=== PATIENT | female | born 1955 | race African-American/Black ===

== ENCOUNTER 2017-12-31 18:01 | Emergency (ER) | payer SELFPAY ==
--- NOTE | 2017-12-31 19:58 | EDPHYS ---
Physician Documentation [facility] Name: Nataly Nielson Age: 62 yrs Sex: Female : 1955 Arrival Date: 12/31/2017 Time: 18:07 Bed Treatment Private MD: ED Physician Karsten Lam HPI: 12/31 20:00 This 62 yrs old Black Female presents to ER via Ambulatory with complaints of Shoulder kb Pain. 20:00 The patient or guardian complains of pain, that is acute. right shoulder. Context: The kb problem was sustained at home, resulted from an unknown reason, The patient reports no decreased range of motion. The patient reports no obvious deformity. Onset: The symptoms/episode began/occurred yesterday. Modifying factors: the symptoms are alleviated by nothing. The symptoms are aggravated by movement. Associated signs and symptoms: The patient has no apparent associated signs or symptoms. Severity of symptoms: At their worst the symptoms were moderate, in the emergency department the symptoms are unchanged. Treatment prior to arrival includes: no previous treatment. The patient has not experienced similar symptoms in the past. The patient has not recently seen a physician. Historical: - Allergies: 18:24 No Known Allergies; aj - Home Meds: 18:24 None [Active]; aj - PMHx: 18:24 None; aj - PSHx: 18:24 None; aj - Immunization history:: Adult Immunizations up to date. - Social history:: Smoking status: Patient uses tobacco products, smokes one-half pack cigarettes per day. ROS: 20:00 Constitutional: Negative for fever, chills, and weight loss, Cardiovascular: Negative kb for chest pain, palpitations, and edema, Respiratory: Negative for shortness of breath, cough, wheezing, and pleuritic chest pain, Abdomen/GI: Negative for abdominal pain, nausea, vomiting, diarrhea, and constipation, Back: Negative for injury and pain, : Negative for injury, bleeding, discharge, and swelling, Skin: Negative for injury, rash, and discoloration, Neuro: Negative for headache, weakness, numbness, tingling, and seizure. 20:00 MS/extremity: Positive for pain, Negative for injury or acute deformity, decreased range of motion, swelling, tenderness. Exam: 20:00 Constitutional: This is a well developed, well nourished patient who is awake, alert, kb and in no acute distress. Head/Face: Normocephalic, atraumatic. Neck: Trachea midline, no thyromegaly or masses palpated, and no cervical lymphadenopathy. Supple, full range of motion without nuchal rigidity, or vertebral point tenderness. No Meningismus. Chest/axilla: Normal chest wall appearance and motion. Nontender with no deformity. No lesions are appreciated. Cardiovascular: Regular rate and rhythm with a normal S1 and S2. No gallops, murmurs, or rubs. Normal PMI, no JVD. No pulse deficits. Respiratory: Lungs have equal breath sounds bilaterally, clear to auscultation and percussion. No rales, rhonchi or wheezes noted. No increased work of breathing, no retractions or nasal flaring. Abdomen/GI: Soft, non-tender, with normal bowel sounds. No distension or tympany. No guarding or rebound. No evidence of tenderness throughout. Skin: Warm, dry with normal turgor. Normal color with no rashes, no lesions, and no evidence of cellulitis. Neuro: Awake and alert, GCS 15, oriented to person, place, time, and situation. Cranial nerves II-XII grossly intact. Motor strength 5/5 in all extremities. Sensory grossly intact. Cerebellar exam normal. Normal gait. 20:00 Musculoskeletal/extremity: Extremities: grossly normal except: noted in the right shoulder: pain, ROM: limited active range of motion due to pain, in the right shoulder, Circulation is intact in all extremities. Sensation intact. Vital Signs: 18:24 BP 171 / 98; Pulse 63; Resp 17; Temp 98.6; Pulse Ox 98% on R/A; Weight 61.69 kg; Height aj 5 ft. 2 in. (157.48 cm); Pain 10/10; 20:13 BP 193 / 80; Pulse 55; Resp 18; Pulse Ox 99% on R/A; Pain 6/10; tl2 18:24 Body Mass Index 24.87 (61.69 kg, 157.48 cm) aj MDM: 18:52 Patient medically screened. kb 20:02 Data reviewed: vital signs, nurses notes. Data interpreted: Pulse oximetry: on room air kb is 98 %. Interpretation: normal. Counseling: I had a detailed discussion with the patient and/or guardian regarding: the historical points, exam findings, and any diagnostic results supporting the discharge/admit diagnosis, radiology results, the need for outpatient follow up, a family practitioner, to return to the emergency department if symptoms worsen or persist or if there are any questions or concerns that arise at home. 12/31 18:26 Order name: XRAY Shoulder RIGHT 2 view; Complete Time: 20:06 aj Administered Medications: No medications were administered Disposition: 12/31/17 19:57 Discharged to Home. Impression: Pain in right shoulder. - Condition is Stable. - Discharge Instructions: Shoulder Pain, [id number]. - Prescriptions for Cyclobenzaprine 10 mg Oral Tablet - take 1 tablet by ORAL route every 8 hours As needed; 21 tablet. Diclofenac Sodium 75 mg Oral Tablet, Delayed Release (E.C.) - take 1 tablet by ORAL route 2 times per day As needed; 30 tablet. - Medication Reconciliation Form, Thank You Letter, Antibiotic Education, Prescription Opioid Use, Work release form form. - Follow up: Emergency Department; When: As needed; Reason: Worsening of condition. Follow up: Private Physician; When: 2 - 3 days; Reason: Recheck today's complaints, Continuance of care, Re-evaluation by your physician. Addendum: 01/03/2018 08:51 Co-signature as Attending Physician, Karsten Lam MD I agree with the assessment and c green plan of care. Signatures: Dispatcher [employer] Ester Cha, CHILDREN'S BOOK AUTHOR-C CHILDREN'S BOOK AUTHOR-Susana Armstrong, Karsten Moore RN, MD MD cha Knox, Taylor RN RN tl2 Corrections: (The following items were deleted from the chart) 12/31 20:14 19:57 12/31/2017 19:57 Discharged to Home. Impression: Pain in right shoulder. tl2 Condition is Stable. Forms are Medication Reconciliation Form, Thank You Letter, Antibiotic Education, Prescription Opioid Use. Follow up: Emergency Department; When: As needed; Reason: Worsening of condition. Follow up: Private Physician; When: 2 - 3 days; Reason: Recheck today's complaints, Continuance of care, Re-evaluation by your physician. kb
--- NOTE | 2017-12-31 19:58 | ER ---
Nurse's Notes [facility] Name: Nataly Nielson Age: 62 yrs Sex: Female : 1955 Arrival Date: 12/31/2017 Time: 18:07 Bed Treatment Private MD: Diagnosis: Pain in right shoulder Presentation: 12/31 18:23 Presenting complaint: Patient states: Right shoulder pain that started last night. aj Patient denies injury. Report "crackling" feeling in right shoulder. Transition of care: patient was not received from another setting of care. Onset of symptoms was December 30, 2017. Care prior to arrival: None. 18:23 Method Of Arrival: Ambulatory 18:23 Acuity: MAMADOU 4 19:35 Initial Sepsis Screen: Does the patient meet any 2 criteria? No. Patient's initial tl2 sepsis screen is negative. Does the patient have a suspected source of infection? No. Patient's initial sepsis screen is negative. Triage Assessment: 18:24 General: Appears in no apparent distress. uncomfortable, Behavior is calm, cooperative, aj appropriate for age. Pain: Complains of pain in anterior aspect of right shoulder. Neuro: Level of Consciousness is awake, alert, obeys commands, Oriented to person, place, time, situation, Appropriate for age. Respiratory: Airway is patent Respiratory effort is even, unlabored, Respiratory pattern is regular, symmetrical. Derm: Skin is intact, is healthy with good turgor, Skin is pink, warm \\T\\ dry. normal. Musculoskeletal: Reports pain in anterior aspect of right shoulder. Historical: - Allergies: 18:24 No Known Allergies; - Home Meds: 18:24 None [Active]; - PMHx: 18:24 None; - PSHx: 18:24 None; aj - Immunization history:: Adult Immunizations up to date. - Social history:: Smoking status: Patient uses tobacco products, smokes one-half pack cigarettes per day. Screenin:33 Abuse screen: Denies threats or abuse. Nutritional screening: No deficits noted. tl2 Tuberculosis screening: No symptoms or risk factors identified. Fall Risk None identified. Assessment: 19:33 General: Appears in no apparent distress. uncomfortable, Behavior is calm, cooperative, tl2 appropriate for age. Pain: Complains of pain in right clavicle and anterior aspect of right shoulder Pain radiates to right arm Pain began this morning. Neuro: Level of Consciousness is awake, alert, obeys commands, Oriented to person, place, time, situation. Cardiovascular: Denies chest pain. Respiratory: Airway is patent Respiratory effort is even, unlabored, Respiratory pattern is regular, symmetrical. GI: No signs and/or symptoms were reported involving the gastrointestinal system. : No signs and/or symptoms were reported regarding the genitourinary system. Derm: Skin is pink, warm \\T\\ dry. Musculoskeletal: Circulation, motion, and sensation intact. Range of motion: limited in right shoulder. 20:13 Reassessment: Patient appears in no apparent distress at this time. Patient and/or tl2 family updated on plan of care and expected duration. Pain level reassessed. Patient is alert, oriented x 3, equal unlabored respirations, skin warm/dry/pink. Pt verbalized understanding of discharge instructions, need for follow up and prescription usage. Vital Signs: 18:24 BP 171 / 98; Pulse 63; Resp 17; Temp 98.6; Pulse Ox 98% on R/A; Weight 61.69 kg; Height aj 5 ft. 2 in. (157.48 cm); Pain 10/10; 20:13 BP 193 / 80; Pulse 55; Resp 18; Pulse Ox 99% on R/A; Pain 6/10; tl2 18:24 Body Mass Index 24.87 (61.69 kg, 157.48 cm) aj ED Course: 18:07 Patient arrived in ED. mr 18:23 Triage completed. aj 18:24 Arm band placed on left wrist. Patient placed in waiting room, Patient notified of wait aj time. X-ray ordered. 18:52 Ester Pimentel FNP-C is PHCP. kb 18:52 Karsten Lam MD is Attending Physician. kb 19:20 Yarelis Small, SUSANNE is Primary Nurse. tl2 19:20 X-ray completed. Portable x-ray completed in exam room. Patient tolerated procedure kp1 well. 19:21 XRAY Shoulder RIGHT 2 view In Process Unspecified. EDMS 19:33 Patient has correct armband on for positive identification. Bed in low position. Call tl2 light in reach. 20:13 No provider procedures requiring assistance completed. Patient did not have IV access tl2 during this emergency room visit. Administered Medications: No medications were administered Outcome: 19:57 Discharge ordered by . stan 20:13 Discharged to home ambulatory, with family. tl2 20:13 Condition: stable 20:13 Discharge instructions given to patient, Instructed on discharge instructions, follow up and referral plans. medication usage, Demonstrated understanding of instructions, follow-up care, medications, Prescriptions given X 2. 20:14 Patient left the ED. tl2 Signatures: Dispatcher [employer] EDMS Ester Pimentel, PRORATE CLERK-C PRORATE CLERK-Susana Armstrong, RN Bianca Alegre Taylor, RN RN tl2 Kate Hermosillo [facility]
--- NOTE | 2017-12-31 20:04 | RAD REPORT ---
EXAM DESCRIPTION: RAD - Shoulder Right 2 View - 12/31/2017 7:25 pm CLINICAL HISTORY: Right shoulder pain FINDINGS: No fracture is seen. The humeral head appears to be in internal rotation on both views. This is a nonspecific finding but can be associated with a posterior dislocation. If patient has clinical symptoms to suggest this then an axillary view of the shoulder would be recommended for further evaluation
== END 2017-12-31 20:14 | disposition home or self-care (01) ==
LOC: ER 18:01
DX: M25.511 Pain in right shoulder (principal); F17.210 Nicotine dependence, cigarettes, uncomplicated
CPT/HCPCS: 99283

== ENCOUNTER 2020-02-23 14:07 | Emergency (ER) | payer SELFPAY, OTHER ==
[2020-02-23] MEDS ORDERED: ACETAMINOPHEN 500 MG TAB ONE (15:23)
--- NOTE | 2020-02-23 15:25 | EDPHYS ---
Physician Documentation [facility] Name: Nataly Nielson Age: 64 yrs Sex: Female : 1955 Arrival Date: 02/23/2020 Time: 14:10 Bed 18 Private MD: ED Physician Sam Glynn HPI: 02/22 15:42 This 64 yrs old Black Female presents to ER via Ambulatory with complaints of Body snw aches. 15:42 Onset: The symptoms/episode began/occurred gradually, 4 day(s) ago, and became snw persistent. Associated signs and symptoms: Pertinent positives: fever, headache, fatigue. Modifying factors: The patient symptoms are alleviated by nothing. The patient has not experienced similar symptoms in the past. The patient has not recently seen a physician. denies PMH, PSH, NKDA, No meds. Historical: - Allergies: 14:43 No Known Allergies; bp - Home Meds: 14:43 None [Active]; bp - PMHx: 14:43 None; bp - Immunization history:: Adult Immunizations unknown. - Social history:: Smoking status: Patient denies any tobacco usage or history of. ROS: 15:43 Eyes: Negative for injury, pain, redness, and discharge, ENT: Negative for injury, snw pain, and discharge, Neck: Negative for injury, pain, and swelling, Cardiovascular: Negative for chest pain, palpitations, and edema, Respiratory: Negative for shortness of breath, cough, wheezing, and pleuritic chest pain, Abdomen/GI: Negative for abdominal pain, nausea, vomiting, diarrhea, and constipation, Back: Negative for injury and pain, : Negative for injury, bleeding, discharge, and swelling, MS/Extremity: Negative for injury and deformity, Skin: Negative for injury, rash, and discoloration, Neuro: Negative for headache, weakness, numbness, tingling, and seizure. 15:43 Constitutional: Positive for body aches, fatigue, fever, malaise, poor PO intake. Exam: 16:40 Head/Face: Normocephalic, atraumatic. Eyes: Pupils equal round and reactive to light, snw extra-ocular motions intact. Lids and lashes normal. Conjunctiva and sclera are non-icteric and not injected. Cornea within normal limits. Periorbital areas with no swelling, redness, or edema. ENT: Nares patent. No nasal discharge, no septal abnormalities noted. Tympanic membranes are normal and external auditory canals are clear. Oropharynx with no redness, swelling, or masses, exudates, or evidence of obstruction, uvula midline. Mucous membranes moist. Neck: Trachea midline, no thyromegaly or masses palpated, and no cervical lymphadenopathy. Supple, full range of motion without nuchal rigidity, or vertebral point tenderness. No Meningismus. Chest/axilla: Normal chest wall appearance and motion. Nontender with no deformity. No lesions are appreciated. Cardiovascular: Regular rate and rhythm with a normal S1 and S2. No gallops, murmurs, or rubs. Normal PMI, no JVD. No pulse deficits. Respiratory: Lungs have equal breath sounds bilaterally, clear to auscultation and percussion. No rales, rhonchi or wheezes noted. No increased work of breathing, no retractions or nasal flaring. Abdomen/GI: Soft, non-tender, with normal bowel sounds. No distension or tympany. No guarding or rebound. No evidence of tenderness throughout. Back: No spinal tenderness. No costovertebral tenderness. Full range of motion. Skin: Warm, dry with normal turgor. Normal color with no rashes, no lesions, and no evidence of cellulitis. MS/ Extremity: Pulses equal, no cyanosis. Neurovascular intact. Full, normal range of motion. Neuro: Awake and alert, GCS 15, oriented to person, place, time, and situation. Cranial nerves II-XII grossly intact. Motor strength 5/5 in all extremities. Sensory grossly intact. Cerebellar exam normal. Normal gait. Psych: Awake, alert, with orientation to person, place and time. Behavior, mood, and affect are within normal limits. 16:40 Constitutional: The patient appears alert, febrile. Vital Signs: 14:41 BP 121 / 71; Pulse 96; Resp 20; Temp 101.4; Pulse Ox 97% ; Weight 61.69 kg; Height 5 bp ft. 2 in. (157.48 cm); 14:41 Body Mass Index 24.87 (61.69 kg, 157.48 cm) bp MDM: 14:58 Patient medically screened. snw 15:41 Data reviewed: vital signs, nurses notes. Data interpreted: Pulse oximetry: on room air snw is 97 %. Interpretation: acceptable. Response to treatment: the patient's symptoms have mildly improved after treatment. Special discussion: Based on the history and exam findings, there is no indication for further emergent testing or inpatient evaluation. I discussed with the patient/guardian the need to see the primary care provider for further evaluation of the symptoms. 02/22 15:12 Order name: COVID-19 02/22 15:12 Order name: CORONAVIRUS EDVT Administered Medications: No medications were administered Disposition: 19:10 Co-signature as Attending Physician, Sam Glynn MD. ma2 Disposition: 02/23/20 15:25 Discharged to Home. Impression: Coronavirus infection, unspecified. - Condition is Stable. - Discharge Instructions: Fever, Adult, Upper Respiratory Infection, Adult, Rehydration, Adult. - Prescriptions for Prednisone 20 mg Oral Tablet - take 2 tablet by ORAL route once daily for 5 days; 10 tablet. Zithromax 500 mg Oral Tablet - take 1 tablet by ORAL route once daily for 5 days; 5 tablet. - Work release form, Medication Reconciliation Form, Thank You Letter, Antibiotic Education, Prescription Opioid Use form. - Follow up: Emergency Department; When: As needed; Reason: Worsening of condition. Follow up: Private Physician; When: 2 - 3 days; Reason: Recheck today's complaints, Continuance of care, Re-evaluation by your physician. Signatures: Dispatcher [employer] EDVT Adina Cochran, CARROLL-C TIRE BUILDING SUPERVISOR-Csnw Christiano Molina RN RN Sam Glynn MD MD [facility] Ingrid Teran RN RN Corrections: (The following items were deleted from the chart) 15:49 15:25 02/23/2020 15:25 Discharged to Home. Impression: Coronavirus infection, ah unspecified. Condition is Stable. Forms are Medication Reconciliation Form, Thank You Letter, Antibiotic Education, Prescription Opioid Use. Follow up: Emergency Department; When: As needed; Reason: Worsening of condition. Follow up: Private Physician; When: 2 - 3 days; Reason: Recheck today's complaints, Continuance of care, Re-evaluation by your physician. snw
--- NOTE | 2020-02-23 15:25 | ER ---
Nurse's Notes [facility] Name: Nataly Nielson Age: 64 yrs Sex: Female : 1955 Arrival Date: 02/23/2020 Time: 14:10 Bed 18 Private MD: Diagnosis: Coronavirus infection, unspecified Presentation: 02/22 14:41 Chief complaint: Patient states: FEVER, MYALGIA AND MALAISE INCREASING x4 DAYS. bp Coronavirus screen: Surgical mask placed on patient. Patient moved to private room, placed in contact and droplet isolation with eye protection until further assessment. Patient reports a cough. Patient reports shortness of breath or difficulty breathing. Patient reports a measured and/or subjective temperature greater than 100.4F. Ebola Screen: No symptoms or risks identified at this time. Initial Sepsis Screen: Does the patient meet any 2 criteria? Temp <36.0*C (96.8*F)) or > 38.3*C (100.9*F). HR > 90 bpm. Yes Does the patient have a suspected source of infection? No. Patient's initial sepsis screen is negative. Risk Assessment: Do you want to hurt yourself or someone else? Patient reports no desire to harm self or others. Onset of symptoms is unknown. 14:41 Method Of Arrival: Ambulatory bp 14:41 Acuity: MAMADOU 3 bp Historical: - Allergies: 14:43 No Known Allergies; bp - Home Meds: 14:43 None [Active]; bp - PMHx: 14:43 None; bp - Immunization history:: Adult Immunizations unknown. - Social history:: Smoking status: Patient denies any tobacco usage or history of. Screenin:20 Nutritional screening: No deficits noted. Tuberculosis screening: No symptoms or risk ah factors identified. Tuberculosis screening: No symptoms or risk factors identified. Fall Risk None identified. 15:20 Abuse screen: Denies threats or abuse. ah Assessment: 15:00 General: Appears in no apparent distress. Behavior is calm, cooperative, appropriate ah for age. Pain: Complains of pain in achy all over. Neuro: Level of Consciousness is awake, alert, obeys commands, Oriented to person, place, time, situation, Appropriate for age. Cardiovascular: Capillary refill < 3 seconds Patient's skin is warm and dry. Respiratory: Reports shortness of breath on exertion cough that is productive, Airway is patent Respiratory effort is even, unlabored, Respiratory pattern is regular, symmetrical. Derm: Skin is intact, is healthy with good turgor. 15:00 General: Reports chills for fever for 12-24 hours. Vital Signs: 14:41 BP 121 / 71; Pulse 96; Resp 20; Temp 101.4; Pulse Ox 97% ; Weight 61.69 kg; Height 5 bp ft. 2 in. (157.48 cm); 14:41 Body Mass Index 24.87 (61.69 kg, 157.48 cm) bp ED Course: 14:10 Patient arrived in ED. mr 14:42 Triage completed. bp 14:43 Arm band placed on. bp 14:57 Adina Valiente FNP-C is PSYCHIATRICP. snw 14:57 Sam Glynn MD is Attending Physician. snw 15:11 Ingrid Teran, RN is Primary Nurse. 15:30 No provider procedures requiring assistance completed. Patient did not have IV access ah during this emergency room visit. 15:48 Patient has correct armband on for positive identification. Bed in low position. Call light in reach. Administered Medications: No medications were administered Outcome: 15:25 Discharge ordered by . snw 15:30 Discharged to home ambulatory. 15:30 Condition: good 15:30 Discharge instructions given to patient, Instructed on discharge instructions, follow up and referral plans. Demonstrated understanding of instructions, follow-up care, medications, Prescriptions given X 2. 15:49 Patient left the ED. Addendum: 02/28/2020 14:55 Addendum: COVID-19 Result: Negative result given to RN to notify pt. Contacted by: Lucie Hernandez RN. Notified pt of negative COVID 19 swab results. Pt advised that even with a negative test result they should remain in isolation until symptom free for 3 days without medication. Pt also advised to return to the ED for worsening symptoms. Signatures: Jossy Hernandez RN RN dm5 Adina Cochran FNP-C DIE MOUNTER-Csnw Amy LaiChristiano RN RN bp Ingrid Teran RN [facility] Corrections: (The following items were deleted from the chart) 14:59 14:51 Addendum: COVID-19 Result: Negative result given to RN to notify pt. Contacted dm5 by: Lucie Hernandez RN . dm5
[2020-02-23 16:00] VITALS: BP 121/71; TEMP 101.4; O2SAT 97
== END 2020-02-23 15:49 | disposition home or self-care (01) ==
LOC: ER 14:07
DX: R53.83 Other fatigue (principal); Z20.828 Contact with and (suspected) exposure to other viral communicable diseases; R51 Headache
CPT/HCPCS: 99282; U0002

== ENCOUNTER 2020-05-24 21:45 | Emergency (ER) | payer OTHER, SELFPAY ==
--- NOTE | 2020-05-24 23:15 | ER ---
Nurse's Notes [facility] Name: Nataly Nielson Age: 64 yrs Sex: Female : 1955 Arrival Date: 05/24/2020 Time: 21:51 Bed 16 Private MD: Diagnosis: Injury of conjunctiva and corneal abrasion without foreign body, right eye Presentation: 05/24 21:55 Chief complaint: Patient states: "i tried to get this contact in my right eye. i tried jd3 again this morning and i still could not get it out. it is really starting to hurt.". Coronavirus screen: At this time, the client does not indicate any symptoms associated with coronavirus-19. Ebola Screen: Patient negative for fever greater than or equal to 101.5 degrees Fahrenheit, and additional compatible Ebola Virus Disease symptoms. Initial Sepsis Screen: Does the patient meet any 2 criteria? No. Patient's initial sepsis screen is negative. Does the patient have a suspected source of infection? No. Patient's initial sepsis screen is negative. Risk Assessment: Do you want to hurt yourself or someone else? Patient reports no desire to harm self or others. Onset of symptoms was May 23, 2020. 21:55 Acuity: MAMADOU 4 jd3 21:55 Method Of Arrival: Ambulatory jd3 Historical: - Allergies: 21:57 No Known Allergies; jd3 - Home Meds: 21:57 None [Active]; jd3 - PMHx: 21:57 None; jd3 - PSHx: 21:57 None; jd3 - Immunization history:: Adult Immunizations up to date. - Social history:: Smoking status: Patient reports the use of cigarette tobacco products, smokes one-half pack cigarettes per day. Screenin:46 Abuse screen: Denies threats or abuse. Nutritional screening: No deficits noted. jd3 Tuberculosis screening: No symptoms or risk factors identified. Fall Risk Ambulatory Aid- None/Bed Rest/Nurse Assist (0 pts). Gait- Normal/Bed Rest/Wheelchair (0 pts) Mental Status- Oriented to own ability (0 pts). Total Chun Fall Scale indicates No Risk (0-24 pts). Assessment: 22:45 General: Appears in no apparent distress. uncomfortable, Behavior is calm, cooperative, jd3 appropriate for age. Pain: Complains of pain in right eye Quality of pain is described as aching, pressure. Neuro: Level of Consciousness is awake, alert, obeys commands, Oriented to person, place, time, situation. Cardiovascular: Denies chest pain, Capillary refill < 3 seconds Patient's skin is warm and dry. Respiratory: Airway is patent Respiratory effort is even, unlabored, Respiratory pattern is regular, symmetrical, Denies cough, shortness of breath. GI: No signs and/or symptoms were reported involving the gastrointestinal system. : No signs and/or symptoms were reported regarding the genitourinary system. EENT: Eyes are tearing on right eye Sclera/Cornea are reddened in right eye. Derm: Skin is intact, Skin is dry, Skin is normal, Skin temperature is warm. Musculoskeletal: Circulation, motion, and sensation intact. Range of motion: intact in all extremities. 23:26 Reassessment: Patient appears in no apparent distress at this time. Patient and/or jd3 family updated on plan of care and expected duration. Pain level reassessed. Patient is alert, oriented x 3, equal unlabored respirations, skin warm/dry/pink. Patient states feeling better. Vital Signs: 21:57 BP 141 / 79; Pulse 80; Resp 17 S; Temp 98.4(O); Pulse Ox 100% on R/A; Weight 61.69 kg jd3 (R); Height 5 ft. 2 in. (157.48 cm) (R); Pain 10/10; 23:25 BP 139 / 82; Pulse 82; Resp 16 S; Pulse Ox 100% on R/A; jd3 21:57 Body Mass Index 24.88 (61.69 kg, 157.48 cm) jd3 Visual Acuity: 22:44 Left Eye Visual acuity 20/25, Pupil size 3 mm, Normal, React To Light, Reactive To jd3 Accomodation; Right Eye Visual acuity 20/25, Pupil size 3 mm, Normal, React To Light, Reactive To Accomodation; Both Eyes Visual acuity 20/20; Without Lenses; ED Course: 21:51 Patient arrived in ED. am2 21:56 Triage completed. jd3 21:57 Arm band placed on. jd3 22:37 Julio Issa RN is Primary Nurse. jd3 22:46 Ben Spangler PA is PHCP. jr8 22:46 Karsten Lam MD is Attending Physician. jr8 22:46 Patient has correct armband on for positive identification. Bed in low position. Call jd3 light in reach. Side rails up X 1. Adult w/ patient. Pulse ox on. NIBP on. 23:14 Nina Brown MD is Referral Physician. jr8 23:25 No provider procedures requiring assistance completed. Patient did not have IV access jd3 during this emergency room visit. Administered Medications: No medications were administered Outcome: 23:15 Discharge ordered by . jr8 23:26 Discharged to home ambulatory, with family. jd3 23:26 Condition: stable 23:26 Discharge instructions given to patient, Instructed on discharge instructions, follow up and referral plans. medication usage, Demonstrated understanding of instructions, follow-up care, medications, Prescriptions given X 1. 23:26 Patient left the ED. jd3 Signatures: Ben Spangler PA PA jr8 Susana Fuentes am2 Julio Issa RN RN jd3 Corrections: (The following items were deleted from the chart) 22:00 21:57 Pulse 80bpm; Resp 17bpm; Spontaneous; Pulse Ox 100% RA; Temp 98.4F Oral; 61.69 kg jd3 Reported; Height 5 ft. 2 in. Reported; BMI: 24.8; Pain 10/10; jd3
[2020-05-24] MEDS ORDERED: FLUORESCEIN SODIUM 1 MG/WRAP ONE (23:16)
--- NOTE | 2020-05-24 23:16 | EDPHYS ---
Physician Documentation [facility] Name: Nataly Nielson Age: 64 yrs Sex: Female : 1955 Arrival Date: 05/24/2020 Time: 21:51 Bed 16 Private MD: ED Physician Karsten Lam HPI: 05/24 23:21 This 64 yrs old Black Female presents to ER via Ambulatory with complaints of Foreign jr8 Body In Eye - dried contact lens. 23:21 Onset: The symptoms/episode began/occurred acutely, yesterday. Duration: the symptoms jr8 are continuous. Aggravated by blinking, Alleviated by nothing. Associated signs and symptoms: Pertinent positives: None. Patient wears glasses, wears soft contacts. Severity of symptoms: At their worst the symptoms were mild in the emergency department the symptoms are unchanged. The patient has not experienced similar symptoms in the past. The patient has not recently seen a physician. Patient stated that she thought she still has stuck contact in right eye. Having pain, tearing, and redness now . Historical: - Allergies: 21:57 No Known Allergies; jd3 - Home Meds: 21:57 None [Active]; jd3 - PMHx: 21:57 None; jd3 - PSHx: 21:57 None; jd3 - Immunization history:: Adult Immunizations up to date. - Social history:: Smoking status: Patient reports the use of cigarette tobacco products, smokes one-half pack cigarettes per day. ROS: 23:21 ENT: Negative for injury, pain, and discharge, Neck: Negative for injury, pain, and jr8 swelling, Cardiovascular: Negative for chest pain, palpitations, and edema, Respiratory: Negative for shortness of breath, cough, wheezing, and pleuritic chest pain, Abdomen/GI: Negative for abdominal pain, nausea, vomiting, diarrhea, and constipation, Back: Negative for injury and pain, MS/Extremity: Negative for injury and deformity, Skin: Negative for injury, rash, and discoloration, Neuro: Negative for headache, weakness, numbness, tingling, and seizure. 23:21 Eyes: Positive for foreign body sensation, pain, redness, tearing, of the right eye. Exam: 23:13 Visual Acuity: Visual acuity is within normal limits. jr8 23:13 Head/Face: Normocephalic, atraumatic. ENT: Nares patent. No nasal discharge, no septal abnormalities noted. Tympanic membranes are normal and external auditory canals are clear. Oropharynx with no redness, swelling, or masses, exudates, or evidence of obstruction, uvula midline. Mucous membranes moist. Cardiovascular: Regular rate and rhythm with a normal S1 and S2. No gallops, murmurs, or rubs. Normal PMI, no JVD. No pulse deficits. Respiratory: Lungs have equal breath sounds bilaterally, clear to auscultation and percussion. No rales, rhonchi or wheezes noted. No increased work of breathing, no retractions or nasal flaring. Skin: Warm, dry with normal turgor. Normal color with no rashes, no lesions, and no evidence of cellulitis. MS/ Extremity: Pulses equal, no cyanosis. Neurovascular intact. Full, normal range of motion. Neuro: Awake and alert, GCS 15, oriented to person, place, time, and situation. Cranial nerves II-XII grossly intact. Motor strength 5/5 in all extremities. Sensory grossly intact. Cerebellar exam normal. Normal gait. 23:13 Eyes: Periorbital structures: appear normal, Pupils: equal, round, and reactive to light and accomodation, Extraocular movements: intact throughout, Conjunctiva: injected, in the right eye, Corneas: abrasion, that is moderate sized, approximately 7 mm(s), on the right, at 6 o'clock, a fluorescein strip employed to appreciate the findings, Sclera: no appreciated abnormality, Anterior chamber: normal, Lids and lashes: appear normal. Vital Signs: 21:57 BP 141 / 79; Pulse 80; Resp 17 S; Temp 98.4(O); Pulse Ox 100% on R/A; Weight 61.69 kg jd3 (R); Height 5 ft. 2 in. (157.48 cm) (R); Pain 10/10; 23:25 BP 139 / 82; Pulse 82; Resp 16 S; Pulse Ox 100% on R/A; jd3 21:57 Body Mass Index 24.88 (61.69 kg, 157.48 cm) jd3 Visual Acuity: 22:44 Left Eye Visual acuity 20/25, Pupil size 3 mm, Normal, React To Light, Reactive To jd3 Accomodation; Right Eye Visual acuity 20/25, Pupil size 3 mm, Normal, React To Light, Reactive To Accomodation; Both Eyes Visual acuity 20/20; Without Lenses; Procedures: 23:13 Eye Exam: Fluorescein. jr8 MDM: 22:46 Patient medically screened. jr8 23:13 Data reviewed: vital signs, nurses notes, and as a result, I will discharge patient. jr8 Data interpreted: Pulse oximetry: on room air is 100 %. Interpretation: normal. Counseling: I had a detailed discussion with the patient and/or guardian regarding: the historical points, exam findings, and any diagnostic results supporting the discharge/admit diagnosis, the need for outpatient follow up, an opthalmologist, to return to the emergency department if symptoms worsen or persist or if there are any questions or concerns that arise at home. 05/24 23:26 Order name: Fluoresene Opth strip; Complete Time: 23:26 jd3 Administered Medications: No medications were administered Disposition: 05/24/20 23:15 Discharged to Home. Impression: Injury of conjunctiva and corneal abrasion without foreign body, right eye. - Condition is Stable. - Discharge Instructions: Corneal Abrasion. - Prescriptions for Gentamicin 0.3 % Ophthalmic Drops - instill 2 drop by OPHTHALMIC route every 4 hours; 1 bottle. - Medication Reconciliation Form, Thank You Letter, Antibiotic Education, Prescription Opioid Use form. - Follow up: Nina Brown MD; When: 1 - 2 days; Reason: Recheck today's complaints, Continuance of care, Re-evaluation by your physician. - Problem is new. - Symptoms have improved. Addendum: 05/27/2020 07:09 Co-signature as Attending Physician, Karsten Lam MD I agree with the assessment and c green plan of care. Signatures: Karsten Lam MD MD cha Roszak, Josh, PA PA jr8 Julio Issa RN RN jd3 Corrections: (The following items were deleted from the chart) 05/24 23:26 23:15 05/24/2020 23:15 Discharged to Home. Impression: Injury of conjunctiva and jd3 corneal abrasion without foreign body, right eye. Condition is Stable. Forms are Medication Reconciliation Form, Thank You Letter, Antibiotic Education, Prescription Opioid Use. Follow up: Nina Brown; When: 1 - 2 days; Reason: Recheck today's complaints, Continuance of care, Re-evaluation by your physician. Problem is new. Symptoms have improved. jr8
[2020-05-25 00:03] VITALS: BP 139/82; TEMP 98.4; O2SAT 100
== END 2020-05-24 23:26 | disposition home or self-care (01) ==
LOC: ER 21:45
DX: S05.01XA Injury of conjunctiva and corneal abrasion without foreign body, right eye, initial encounter (principal); F17.210 Nicotine dependence, cigarettes, uncomplicated
CPT/HCPCS: 99283

== ENCOUNTER 2021-07-27 12:28 | Emergency (ER) | payer SELFPAY ==
[2021-07-27 14:09] LABS: Absolute Lymphocytes (CBC) 1.7 K/uL (0.7-4.9); Basophils % 0.8 % (0-1.3); Hematocrit 40.9 % (36.0-45.0); Lymphocytes % 25.1 % (15.3-44.8); MPV 11.8 fL (7.6-11.3); RBC Red Blood Cell Count 4.35 M/uL (3.86-4.86)
--- NOTE | 2021-07-27 14:09 | RAD REPORT ---
EXAM DESCRIPTION: CT - CTHCSPWOC - 07/27/2021 1:40 pm CLINICAL HISTORY: Numbness/tingling;Pain COMPARISON: No comparisons TECHNIQUE: Axial 5 mm thick images of the head were obtained. Axial 2 mm thick images of the cervic al spine were obtained with sagittal and coronal reconstruction images generated and reviewed. All CT scans are performed using dose optimization technique as appropriate and may include automated exposure control or mA/KV adjustment according to patient size. FINDINGS: No intracranial hemorrhage, mass, edema or acute intracranial finding. No suspicion for ac klam[place] infarction. No extra-axial fluid collections. Mastoid air cells and paranasal sinuses are clear. No globe or orbit abnormality seen. Cervical bodies are normal in height. There is straightening and slight reversal of the usual cervica l lordosis with the apex at C5. C3-4 and C5-6 disc space narrowing and endplate spurring changes are present. Bilateral uncovertebral joint hypertrophy present at C5-6 with bony foraminal encroachment. Protruding disc material and calcification midline and left-side canal causes spinal stenosis. No fra cture or acute bony abnormality. Central canal detail is inherently limited. No paraspinal mass or hematoma. IMPRESSION: Negative CT head examination for acute or significant finding. No fracture or acute cervical spine finding. Protruding disc material with calcification causes spina l stenosis at C5-6. There is bilateral bony foraminal encroachment at this level as well.
--- NOTE | 2021-07-27 14:17 | RAD REPORT ---
EXAM DESCRIPTION: RAD - Chest Single View - 07/27/2021 2:03 pm CLINICAL HISTORY: COUGH COMPARISON: None TECHNIQUE: AP portable chest image was obtained 07/27/2021 2:03 pm . FINDINGS: Lungs are clear. Heart and vasculature are normal. No measurable pleural effusion and no p neumothorax. No acute bony abnormality seen. No acute aortic findings suspected. IMPRESSION: No acute cardiopulmonary process.
[2021-07-27 14:28] LABS: BUN Blood Urea Nitrogen 7 mg/dL (7-18); Bicarbonate 24 mmol/L (21-32); Creatine Phosphokinase 120 U/L (26-192); Glucose Level 92 mg/dL (74-106); Potassium 4.6 mmol/L (3.5-5.1); Sodium Level 142 mmol/L (136-145); Troponin (Emerg Dept Use Only) < 0.02 ng/mL (0.0-0.045)
[2021-07-27 14:29] LABS: SARS-COV-2 RT PCR NEGATIVE (NEGATIVE)
--- NOTE | 2021-07-27 15:15 | EDPHYS ---
Physician Documentation [facility] Name: Nataly Nielson Age: 65 yrs Sex: Female : 1955 Arrival Date: 07/27/2021 Time: 12:31 Bed 6 Private MD: ED Physician Domenic Hicks HPI: 07/27 13:03 This 65 yrs old Black Female presents to ER via Ambulatory with complaints of Neck rn Pain, >24Hrs Old, Arm Problem -pain. 13:03 The patient or guardian complains of pain, that is acute. The complaints affect the rn left arm. Onset: The symptoms/episode began/occurred last night. Treatment prior to arrival includes: no previous treatment. Modifying factors: The symptoms are alleviated by remaining still, the symptoms are aggravated by movement. Associated signs and symptoms: Pertinent positives: pain, Pertinent negatives: decreased range of motion, deformity, fever, swelling, warmth, weakness. Severity of symptoms: At their worst the symptoms were moderate, in the emergency department the symptoms are unchanged. The patient has not experienced similar symptoms in the past. The patient has not recently seen a physician. Patient reports pain in left arm since yesterday. Denies trauma. Denies neck pain. Reports pain with movement and palpation, no swelling, no redness, no weakness. Denies any other focal neurological complaints. No chest pain or shortness of breath. Also reports muscle aches and pains to back and legs. Reports did not smoke this morning because did not feel well.. Historical: - Allergies: 12:55 No Known Allergies; vg1 - Home Meds: 12:55 None [Active]; vg1 - PMHx: 12:55 None; vg1 - PSHx: 12:55 None; vg1 - Immunization history:: Client reports receiving the 2nd dose of the Covid vaccine. - Social history:: Smoking status: Patient reports the use of cigarette tobacco products, smokes one-half pack cigarettes per day. - Family history:: not pertinent. - Hospitalizations: : No recent hospitalization is reported. ROS: 13:03 Constitutional: Negative for fever, chills, and weight loss, Eyes: Negative for injury, rn pain, redness, and discharge, Neck: Negative for injury, pain, and swelling, Cardiovascular: Negative for chest pain, palpitations, and edema, Respiratory: Negative for wheezing, and pleuritic chest pain, Abdomen/GI: Negative for abdominal pain, nausea, vomiting, diarrhea, and constipation, Back: Negative for injury and pain, MS/Extremity: Positive for pain to left upper extremity, negative for weakness or numbness and tingling. Skin: Negative for injury, rash, and discoloration, Neuro: Negative for headache, weakness, numbness, tingling, and seizure. Exam: 13:03 Constitutional: This is a well developed, well nourished patient who is awake, alert, rn and in no acute distress. Head/Face: Normocephalic, atraumatic. Eyes: Periorbital areas with no swelling, redness, or edema. ENT: Dry mucous membranes, no stridor Neck: No cervical midline tenderness, no swelling Cardiovascular: Regular rate and rhythm . No pulse deficits. Respiratory: Speaking full sentences, unlabored. Skin: Warm, dry with normal turgor. Normal color with no rashes, no lesions, and no evidence of cellulitis. MS/ Extremity: Pulses equal, no cyanosis. Neurovascular intact. Painful range of motion and tenderness to palpation entire forearm and long biceps. No fluctuance. No erythema. No warmth. No joint tenderness or limitation to movement. No tenderness or pain in the shoulder or neck. Neuro: Awake and alert, GCS 15, oriented to person, place, time, and situation. Cranial nerves II-XII grossly intact. Motor strength 5/5 in all extremities. Sensory grossly intact. Cerebellar exam normal. Normal gait. 14:17 ECG was reviewed by the Attending Physician. rn Vital Signs: 12:52 BP 148 / 72; Pulse 68; Resp 16; Temp 98.5(O); Pulse Ox 98% ; Weight 63.5 kg; Height 5 vg1 ft. 2 in. (157.48 cm); 14:35 BP 145 / 71; Pulse 53; Resp 16; Pulse Ox 100% on R/A; iw 12:52 Body Mass Index 25.61 (63.50 kg, 157.48 cm) vg1 MDM: 12:47 Patient medically screened. rn 15:12 Differential diagnosis: cervical radiculopathy, neuropathy. Differential diagnosis: rn paresthesia, DVT. Data reviewed: vital signs, nurses notes. Counseling: I had a detailed discussion with the patient and/or guardian regarding: the historical points, exam findings, and any diagnostic results supporting the discharge/admit diagnosis, lab results, radiology results, the need for outpatient follow up, to return to the emergency department if symptoms worsen or persist or if there are any questions or concerns that arise at home. Response to treatment: the patient's symptoms have mildly improved after treatment, and as a result, I will discharge patient. Special discussion: I discussed with the patient/guardian in detail that at this point there is no indication for admission to the hospital. It is understood, however, that if the symptoms persist or worsen the patient needs to return immediately for re-evaluation. ED course: CT head negative for CVA. Ultrasound left upper extremity negative for DVT. CT C-spine shows significant stenosis and calcified disc material at level C5-C6 which could explain patient's left arm pain and tingling. Labs unremarkable.. 12 12:59 Order name: CBC with Diff rn 07/27 12:59 Order name: Basic Metabolic Panel rn 07/27 12:59 Order name: Troponin (emerg Dept Use Only); Complete Time: 15:06 rn 07/27 13:01 Order name: CK; Complete Time: 15:06 rn 07/27 12:59 Order name: Extremity Venous Uni Ltd US rn 07/27 13:01 Order name: XRAY Chest (1 view); Complete Time: 14:21 rn 07/27 13:01 Order name: CBC with Automated Diff; Complete Time: 14:21 EDMS 07/27 13:01 Order name: Basic Metabolic Panel; Complete Time: 15:06 EDMS 07/27 13:37 Order name: CT Head C Spine; Complete Time: 14:21 eb 07/27 13:49 Order name: COVID-19/FLU A+B; Complete Time: 15:06 EDMS 07/27 12:59 Order name: IV Start; Complete Time: 13:28 rn 07/27 12:59 Order name: EKG; Complete Time: 13:02 rn 07/27 12:59 Order name: EKG - Nurse/Tech; Complete Time: 13:28 rn EC:17 Rate is 59 beats/min. Rhythm is regular. QRS [place] is Normal. TX interval is normal. QRS rn interval is normal. QT interval is normal. No Q waves. T waves are Normal. No ST changes noted. Clinical impression: Sinus bradycardia. Interpreted by me. Reviewed by me. Administered Medications: 15:25 Drug: Decadron - Dexamethasone 10 mg Route: IVP; Site: right antecubital; iw 15:40 Follow up: Response: No adverse reaction iw Disposition Summary: 07/27/21 15:14 Discharge Ordered Location: Home rn Problem: new rn Symptoms: have improved rn Condition: Stable rn Diagnosis - Cervical disc disorder with radiculopathy rn Followup: rn - With: Private Physician - When: As needed - Reason: Recheck today's complaints, Re-evaluation by your physician Discharge Instructions: - Discharge Summary Sheet rn - Cervical Radiculopathy rn Forms: - Medication Reconciliation Form rn - Thank You Letter rn - Antibiotic furniture designer - Prescription Opioid Use rn Prescriptions: - Medrol (Gee) 4 mg Oral Tablets, Dose Pack - take 1 tablet by ORAL route as directed - follow package instructions; 1 rn packet; Refills: 0, Product Selection Permitted Signatures: Dispatcher [employer] EDParadise Bruno RN RN iw Domenic Hicks MD MD rn Garcia, Victoria RN RN vg1 Corrections: (The following items were deleted from the chart) 13:39 13:00 Head C Spine MPR Wo Con+CT.RAD.BRZ ordered. EDMS EDMS 13:49 13:01 SARS-COV-2 RT PCR+MOL.LAB.BRZ ordered. EDMS EDMS 13:53 13:01 Influenza Screen (A \T\ B)+BA.LAB.BRZ ordered. EDMS EDMS
--- NOTE | 2021-07-27 15:15 | ER ---
Nurse's Notes [facility] Name: Nataly Nielson Age: 65 yrs Sex: Female : 1955 Arrival Date: 07/27/2021 Time: 12:31 Bed 6 Private MD: Diagnosis: Cervical disc disorder with radiculopathy Presentation: 07/27 12:52 Chief complaint: Patient states: States yesterday Left arm has a 'stinging' sensation vg1 and is tender to touch, has Right side of neck stiffness and face 'feels tight'. Pt Left side of face appears to have a droop. Also states has had a cough x2 weeks. Coronavirus screen: Vaccine status: Patient reports receiving the 2nd dose of the covid vaccine. Client denies travel out of the [place] in the last 14 days. Ebola Screen: Patient negative for fever greater than or equal to 101.5 degrees Fahrenheit, and additional compatible Ebola Virus Disease symptoms. Acute neurological deficit: yes The patient has been moved to a treatment area. Initial Sepsis Screen: Does the patient meet any 2 criteria? No. Patient's initial sepsis screen is negative. Does the patient have a suspected source of infection? No. Patient's initial sepsis screen is negative. Risk Assessment: Do you want to hurt yourself or someone else? Patient reports no desire to harm self or others. Onset of symptoms was July 26, 2021. 12:52 Method Of Arrival: Ambulatory vg1 12:52 Acuity: MAMADOU 2 vg1 Triage Assessment: 12:55 General: Appears in no apparent distress. uncomfortable, Behavior is calm, cooperative. vg1 12:55 Pain: Complains of pain in left arm. Neuro: Level of Consciousness is awake, alert, vg1 obeys commands, Oriented to person, place, time, situation, Oil Heat Technician are weak on left Moves all extremities. Gait is steady, Speech is normal, Facial symmetry appears normal. Historical: - Allergies: 12:55 No Known Allergies; vg1 - Home Meds: 12:55 None [Active]; vg1 - PMHx: 12:55 None; vg1 - PSHx: 12:55 None; vg1 - Immunization history:: Client reports receiving the 2nd dose of the Covid vaccine. - Social history:: Smoking status: Patient reports the use of cigarette tobacco products, smokes one-half pack cigarettes per day. - Family history:: not pertinent. - Hospitalizations: : No recent hospitalization is reported. Screenin:36 Abuse screen: Denies threats or abuse. Denies injuries from another. Nutritional iw screening: No deficits noted. Tuberculosis screening: No symptoms or risk factors identified. Fall Risk IV access (20 points). Assessment: 14:36 Reassessment: Patient appears in no apparent distress at this time. Patient and/or iw family updated on plan of care and expected duration. Pain level reassessed. Patient is alert, oriented x 3, equal unlabored respirations, skin warm/dry/pink. Vital Signs: 12:52 BP 148 / 72; Pulse 68; Resp 16; Temp 98.5(O); Pulse Ox 98% ; Weight 63.5 kg; Height 5 vg1 ft. 2 in. (157.48 cm); 14:35 BP 145 / 71; Pulse 53; Resp 16; Pulse Ox 100% on R/A; iw 12:52 Body Mass Index 25.61 (63.50 kg, 157.48 cm) vg1 ED Course: 12:31 Patient arrived in ED. as 12:47 Domenic Hicks MD is Attending Physician. rn 12:55 Triage completed. vg1 12:55 Arm band placed on. vg1 13:05 Paradise Thomas, SUSANNE is Primary Nurse. iw 13:20 Initial lab(s) drawn, by me, sent to lab. EKG done, by ED staff, COVID swab sent to lab.lt3 13:27 Inserted saline lock: 20 gauge in right antecubital area, using aseptic technique. lt3 13:39 CT Head C Spine In Process Unspecified. EDMS 14:02 XRAY Chest (1 view) In Process Unspecified. EDMS 14:35 Extremity Venous Uni Ltd US In Process Unspecified. EDMS 14:36 Patient has correct armband on for positive identification. iw 15:34 No provider procedures requiring assistance completed. IV discontinued, intact, iw bleeding controlled, No redness/swelling at site. Pressure dressing applied. Administered Medications: 15:25 Drug: Decadron - Dexamethasone 10 mg Route: IVP; Site: right antecubital; iw 15:40 Follow up: Response: No adverse reaction iw Outcome: 15:14 Discharge ordered by . rn 15:34 Discharged to home ambulatory. iw 15:34 Condition: good 15:34 Discharge instructions given to patient, Instructed on discharge instructions, follow up and referral plans. Demonstrated understanding of instructions, follow-up care, medications, Prescriptions given X 1. 15:35 Patient left the ED. Signatures: Dispatcher [employer] EDMS Thais Miller Irene, RN RN iw Domenic Hicks MD MD rn Garcia, Victoria, RN RN vg1 Cason, Karen lt3 Corrections: (The following items were deleted from the chart) 12:55 12:52 Chief complaint: Patient states: States yesterday Left arm has a 'stinging' vg1 sensation and is tender to touch, has Right side of neck stiffness and face 'feels tight'. Pt Left side of face appears to have a droop. Also states has had a cough x2 weeks. vg1 13:00 12:55 Neuro: Level of Consciousness is awake, alert, obeys commands, Oriented to vg1 person, place, time, situation, Oil Heat Technician are weak on left Moves all extremities. Gait is steady, Speech is normal, Facial droop on left, vg1 13:49 13:28 SARS-COV-2 RT PCR+MOL.LAB.BRZ drawn and sent. lt3 EDMS 13:53 13:28 Influenza Screen (A \T\ B)+BA.LAB.BRZ drawn and sent. lt3 EDMS
[2021-07-27] MEDS ORDERED: dexAMETHasone 10 MG/ML VIAL ONE (15:26)
--- NOTE | 2021-07-27 15:45 | RAD REPORT ---
EXAM DESCRIPTION: US - Extremity Venous Uni Ltd - 07/27/2021 2:35 pm CLINICAL HISTORY: Left arm pain and swelling COMPARISON: None. TECHNIQUE: Real-time sonographic evaluation of the left upper extremity deep venous systems was perf ormed. FINDINGS: Normal compressibility, flow augmentation, phasic flow and spontaneous flow are identified in the left upper extremity deep venous system. No intraluminal filling defects seen. Internal jugul ar and subclavian veins are normal as well. IMPRESSION: No DVT in the left upper extremity.
[2021-07-27 15:47] VITALS: TEMP 98.5
[2021-07-27 15:48] VITALS: BP 145/71; O2SAT 100
== END 2021-07-27 15:35 | disposition home or self-care (01) ==
LOC: ER 12:28
DX: M54.12 Radiculopathy, cervical region (principal); M48.02 Spinal stenosis, cervical region; Z20.822 Contact with and (suspected) exposure to COVID-19
CPT/HCPCS: 0240U; 36415; 70450; 71045; 72125; 80048; 82550; 84484; 85025; 93005; 93971; 96374; 99284; J1100

== ENCOUNTER 2024-09-22 14:02 | Observation (INO) | payer SELFPAY ==
--- OUTSIDE RECORDS SUMMARY | 2024-09-22 14:06 | XMS REPORT | Continuity of Care Document ---
Author Name Unknown Address [address] [facility] [place]. [address] Address [address] [facility] [place] [address] Care Team Providers Care Furnace Brazer Name Role Phone [facility]CE WOLF Attending Clinician Unavailable CECE WOLF Admitting Clinician Unavailable Payers Payer Name Policy Type Policy Number Effective Date Expirati on Date Source Encounters Start Date/Time End Date/Time Encounter Type Admission Type Attending Clinicians Care Facility Care Department Encounter ID Source 2022-08-25 12:00:00 2022-08-25 12:00:00 Outpatient [facility] [id number] [address] [facility]
--- NOTE | 2024-09-22 14:37 | RAD REPORT ---
EXAMINATION: CT HEAD stroke protocol WITHOUT CONTRAST CLINICAL INDICATION: Female, 68 years old.STROKE ALERT TECHNIQUE: Axial CT images from the skull base to the vertex without intravenous contrast using a str maxim protocol. Coronal and sagittal reformatted images were created from the data set. One or more of the following dose reduction techniques were used: Automated exposure control, adjustment of the m A and/or kV according to patient size, and/or iterative reconstruction. Unless otherwise specified, incidental findings do not require dedicated imaging follow-up. [id number]. COMPARISON: No prior exam. FINDINGS: INTRACRANIAL: No acute intracranial hemorrhage. No hydrocephalus. No mass effect or midline shift. Mi ld chronic small vessel ischemic changes. VASCULATURE: No visualized abnormalities in the arteries or dural venous sinuses. SCALP/SKULL: No significant soft tissue or osseous abnormalities. SINUSES: Mucosal thickening within the maxillary sinuses. IMPRESSION: No acute intracranial abnormality. THIS REPORT CONTAINS FINDINGS THAT MAY BE CRITICAL TO PATIENT CARE. The findings were communicated to Dr. Rider on 09/22/2024 2:33 PM.
[2024-09-22 14:44] LABS: Absolute Basophils 0.1 K/uL (0-0.5); Absolute Eosinophils 0.2 K/uL (0-0.5); Absolute Lymphocytes (CBC) 2.9 K/uL (0.7-4.9); Absolute Monocytes 0.7 K/uL (0.1-1.3); Absolute Neutrophil 4.1 K/uL (1.8-8.0); Basophils % 0.9 % (0-1.3); Eosinophils % 2.6 % (0-4.4); Hematocrit 42.1 % (36.0-45.0); Hemoglobin 14.3 g/dL (12.0-15.0); Lymphocytes % 35.7 % (15.3-44.8); MCH 31.4 pg (27.0-35.0); MCV 92.4 fL (80-100); MPV 12.1 fL (7.6-11.3); Monocytes % 9.3 % (3.3-12.3); Neutrophils % 51.5 % (41.7-73.7); Platelets 118 thou/uL (152-406); RBC Red Blood Cell Count 4.55 M/uL (3.86-4.86); Red Cell Distribution Width 14.5 % (12.1-15.2)
--- NOTE | 2024-09-22 14:48 | RAD REPORT ---
EXAMINATION: CTA NECK CLINICAL INDICATION: Female, 68 years old. dizzines TECHNIQUE: Axial CT images were obtained from the aortic arch to the skull base after intravenous con trast utilizing angiographic protocol with 3D post-processing (maximum intensity projection images, volume rendered images and/or shaded surface rendered images). One or more of the following dose redu ction techniques were used: Automated exposure control, adjustment of the mA and/or kV according to patient size, and/or iterative reconstruction. Unless otherwise specified, incidental findings do not require dedicated imaging follow-up. [id number]. NASCET criteria used. Mild 0-49% stenosis Moderate 50-69% stenosis Severe 70-99% stenosis COMPARISON: No prior exam. FINDINGS: AORTA: The imaged aortic arch is normal. CCA: The common carotid arteries are patent and normal in caliber. ICA/ECA: Moderate narrowing at the left proximal ICA secondary to noncalcified plaque. This is estima susan between 50 and 69%. The right ICA is patent. Both external carotid arteries are patent. VERTEBRAL: Left dominant vertebral artery. Both are patent. SOFT TISSUE: No significant neck soft tissue abnormalities. The visualized lung apices are clear. 3D images confirm these findings. IMPRESSION: Moderate (50-69%) stenosis of the left proximal ICA. No other flow-limiting stenosis identified. No d issection.
--- NOTE | 2024-09-22 14:50 | RAD REPORT ---
EXAMINATION: CTA HEAD CLINICAL INDICATION: Female, 68 years old. Dizziness;a STROKE ALERT TECHNIQUE: Axial CT images were obtained through the head after intravenous contrast utilizing angiog raphic protocol with 3D post-processing (maximum intensity projection images, volume rendered images and/or shaded surface rendered images). One or more of the following dose reduction technique s were used: Automated exposure control, adjustment of the mA and/or kV according to patient size, and/or iterative reconstruction. Unless otherwise specified, incidental findings do not require dedic ated imaging follow-up. COMPARISON: No prior exam. FINDINGS: ICA: The petrous, cavernous, and supraclinoid segments of the bilateral internal carotid arteries are normal. The ophthalmic artery origins are visualized and normal. The posterior communicating arteries are patent. JOEL: Anterior cerebral arteries are normal bilaterally. The anterior communicating artery is patent. Absent left A1 segment MCA: Middle cerebral arteries are normal bilaterally. DENTAL PROFESSIONAL: Posterior cerebral arteries are normal bilaterally. Vertebrobasilar: The vertebral arteries are patent. The basilar artery is normal in appearance. Left dominant vertebral artery. 3D images confirm these findings. IMPRESSION: No occlusion, aneurysm, or hemodynamically significant stenosis identified.
[2024-09-22 15:02] LABS: ALT/SGPT 18 U/L (13-56); AST/SGOT 13 U/L (15-37); Albumin 3.8 g/dL (3.4-5.0); Albumin/Globulin Ratio 0.8 (1.1-1.8); Alkaline Phosphatase 94 U/L (45-117); Anion Gap 10.8 mEq/L (5.0-15.0); BUN Blood Urea Nitrogen 10 mg/dL (7-18); Bicarbonate 27 mEq/L (21-32); Bilirubin Total 0.4 mg/dL (0.2-1.0); Glomerular Filtration Rate 81 ml/min (=/>90); Glucose Level 67 mg/dL (74-106); Magnesium 2.2 mg/dL (1.6-2.4); Potassium 3.8 mEq/L (3.5-5.1); Protein, Total 8.8 g/dL (6.4-8.2); Sodium Level 141 mEq/L (136-145); Troponin High Sensitivity 5.5 pg/mL (<58.9)
--- NOTE | 2024-09-22 15:04 | RAD REPORT ---
EXAM: Chest Single View HISTORY: dizziness COMPARISON: 07/27/2021 FINDINGS: LUNGS/PLEURA: The lungs are clear. No pleural effusions or pneumothorax. No pulmonary edema. MEDIASTINUM: The mediastinal silhouette is within normal limits. CARDIAC: Mild cardiomegaly UPPER ABDOMEN: No significant abnormality. BONES: No acute abnormality. LINES/TUBES/OTHER: N/A IMPRESSION: No evidence of acute cardiopulmonary disease.
[2024-09-22 15:05] LABS: Bilirubin Direct < 0.2 mg/dL (0-0.2); Bilirubin Indirect, Calculated 0.2 mg/dL (0.2-0.8)
[2024-09-22 15:17] LABS: PT Prothrombin Time 12.3 SECONDS (9.4-12.5); PTT, Activated Partial Thromb 31.6 SECONDS (24.3-36.9); Protime INR 1.17
--- NOTE | 2024-09-22 15:17 | ER ---
Nurse's Notes [facility] Name: Nataly Nielson Age: 68 yrs Sex: Female : 1955 Arrival Date: 09/22/2024 Time: 14:02 Bed 3 Private MD: Diagnosis: Dizziness;Facial numbness Presentation: 09/22 14:14 Chief complaint: Patient states: Awoke feeling dizzy, lethargic, R side of face/arm ll1 feeling numb, off balanced, shaky since 1130 today when she woke up. Coronavirus screen: Client denies travel out of the [place] in the last 14 days. At this time, the client does not indicate any symptoms associated with coronavirus-19. Ebola Screen: Patient denies travel to an Ebola-affected area in the 21 days before illness onset. Initial Sepsis Screen: Does the patient meet any 2 criteria? No. Patient's initial sepsis screen is negative. Does the patient have a suspected source of infection? No. Patient's initial sepsis screen is negative. Risk Assessment: Do you want to hurt yourself or someone else? Patient reports no desire to harm self or others. Onset of symptoms was September 22, 2024. 14:14 Method Of Arrival: Wheelchair ll1 14:14 Acuity: MAMADOU 2 ll1 Triage Assessment: 14:14 General: Appears uncomfortable, Behavior is calm, cooperative, appropriate for age. ll1 Pain: Complains of pain in R side of face Pain currently is 4 out of 10 on a pain scale. Quality of pain is described as pressure. Neuro: Reports headache weakness. Historical: - Allergies: 14:13 No Known Allergies; ll1 - Home Meds: 14:16 None [Active]; ll1 - PMHx: 14:13 None; ll1 - PSHx: 14:16 None; ll1 - Immunization history:: Adult Immunizations up to date. - Infectious Disease History:: Denies. - Social history:: Smoking status: Patient denies any tobacco usage or history of. Screenin:20 Cecily Swallow Protocol Exclusion Criteria: Brief Cognitive Screen What is your name? ld1 Normal, Where are you right now? Normal, What year is it? Normal. Oral Mechanism Examination Facial Symmetry: Normal, Motion: Normal, Lip Closure: Normal, 3 oz Water Swallow Challenge: Pt able to drink all water without stopping, coughing, choking or throat clearing: Yes Result: PASS MD Notified: Joselo Rider . 14:41 [facility] ED Fall Risk Assessment (Adult) History of falling in the last 3 months, ld1 including since admission No falls in past 3 months (0 pts) Confusion or Disorientation No (0 pts) Intoxicated or Sedated No (0 pts) Impaired Gait No (0 pts) Mobility Assist Device Used No (0 pt) Altered Elimination No (0 pt) Score/Fall Risk Level 0 - 2 = Low Risk Oriented to surroundings, Hourly rounding (assess needs \T\ fall precautionary measures) done. Abuse screen: Denies threats or abuse. Denies injuries from another. Nutritional screening: No deficits noted. Tuberculosis screening: No symptoms or risk factors identified. Assessment: 14:18 Reassessment: Code stroke called. ld1 14:19 Reassessment: Pt to CT. ld1 14:41 General: Appears in no apparent distress. comfortable, Behavior is calm, cooperative, ld1 appropriate for age. Pain: Denies pain. Neuro: Level of Consciousness is awake, alert, obeys commands, Oriented to person, place, time, situation. Neuro: Reports dizziness, since 11:30 headache. Cardiovascular: Capillary refill < 3 seconds Patient's skin is warm and dry. Rhythm is sinus rhythm. Respiratory: Airway is patent Respiratory effort is even, unlabored. GI: Abdomen is flat, non-distended. : No signs and/or symptoms were reported regarding the genitourinary system. EENT: No signs and/or symptoms were reported regarding the EENT system. Derm: No signs and/or symptoms reported regarding the dermatologic system. Musculoskeletal: No signs and/or symptoms reported regarding the musculoskeletal system. 15:30 Reassessment: Patient appears in no apparent distress at this time. No changes from ld1 previously documented assessment. Patient and/or family updated on plan of care and expected duration. Pain level reassessed. Patient is alert, oriented x 3, equal unlabored respirations, skin warm/dry/pink. Patient denies pain at this time. Patient states symptoms have improved. 16:20 Reassessment: Hospitalist at bedside assessing patient. ld1 16:50 Reassessment: Patient appears in no apparent distress at this time. No changes from ld1 previously documented assessment. Patient and/or family updated on plan of care and expected duration. Pain level reassessed. Patient is alert, oriented x 3, equal unlabored respirations, skin warm/dry/pink. Vital Signs: 14:14 BP 163 / 92; Pulse 71; Resp 17; Temp 97.3; Pulse Ox 100% ; Weight 61.69 kg; Height 5 ll1 ft. 2 in. ; Pain 9/10; 14:40 BP 196 / 87; Pulse 59; Resp 14; Pulse Ox 100% on R/A; ld1 15:22 BP 162 / 67; Pulse 54; Pulse Ox 100% ; ap3 16:20 BP 162 / 83; Pulse 60; Resp 19; Pulse Ox 100% on R/A; ld1 16:50 BP 162 / 83; Pulse 53; Resp 18; Pulse Ox 100% on R/A; ld1 19:23 BP 140 / 78; Pulse 61; Resp 18; Pulse Ox 100% ; vc1 14:14 Body Mass Index 24.87 (61.69 kg, 157.48 cm) ll1 14:14 Pain Scale: Adult ll1 NIH Stroke Scale Scores: 14:19 NIHSS Score: 0 ms3 14:20 NIHSS Score: 0 ld1 ED Course: 14:06 Patient arrived in ED. ra3 14:10 Joselo Rider DO is Attending Physician. ms3 14:13 Arm band placed on. ll1 14:16 Triage completed. ll1 14:32 CT Stroke Brain w/o Contrast In Process Unspecified. EDMS 14:34 CT Head Angio In Process Unspecified. EDMS 14:34 CT Neck Angio In Process Unspecified. EDMS 14:41 Inserted saline lock: 20 gauge in left antecubital area, using aseptic technique. Blood ld1 collected. Flushed with 10 mL NS. 14:41 EKG done, by ED staff, reviewed by Joselo Rider DO. ap3 14:41 No provider procedures requiring assistance completed. ld1 14:55 Stroke CXR 1 View In Process Unspecified. EDMS 15:16 Alexi Hicks MD is Hospitalizing Provider. ms3 15:20 Patient has correct armband on for positive identification. Placed in gown. Bed in low ld1 position. Call light in reach. Side rails up X2. school bus monitor on. Pulse ox on. NIBP on. Door closed. Noise minimized. Warm blanket given. 15:33 Maria Elena Rider, SUSANNE is Primary Nurse. ld1 15:41 Brain Wo Cont In Process Unspecified. EDMS 19:23 Provided Education on: Fall safety. vc1 19:23 Patient admitted, IV remains in place. vc1 Administered Medications: 16:27 Not Given (Physician Discretion): [id number] mg IV at calculated rate once ld1 16:43 Drug: Meclizine PO 50 mg PO once Route: PO; ld1 Medication: 14:41 VIS not applicable for this client. ld1 Outcome: 15:16 Decision to Hospitalize by Provider. ms3 19:23 Admitted to ER Hold. Please see [facility] for further documentation. vc1 19:23 Condition: good 19:23 Instructed on the need for admit, 23:01 Patient left the ED. vc1 NIH Stroke Scale - NIH Stroke Score Date: 09/22/2024 Time: 14:19 Total Score = 0 10. Dysarthria (speech clarity - read or repeat words) - 0(Normal) 11. Extinction and Inattention (visual/tactile/auditory/spatial/personal) - 0(No abnormality) 1a. Level of Consciousness (LOC) - 0(Alert) 1b. Level of Consciousness (LOC) (Month \T\ Age) - 0(Both) 1c. LOC Commands (Open \T\ Closes Eyes/Room Maid) - 0(Both) 2. Best Gaze (Lateral Gaze Paresis) - 0(Normal) 3. Visual Field Loss - 0(No visual loss) 4. Facial Palsy - 0(Normal) 5a. Left Arm: Motor (10-second hold) - 0(No drift) 5b. Right Arm: Motor (10-second hold) - 0(No drift) 6a. Left Leg: Motor (5-second hold - always test supine) - 0(No drift) 6b. Right Leg: Motor (5-second hold - always test supine) - 0(No drift) 7. Limb Ataxia (finger/nose \T\ heel/castelan - test with eyes open) - 0(Absent) 8. Sensory Loss (pinprick arms/legs/face) - 0(Normal) 9. Best Language: Aphasia (description/naming/reading) - 0(No aphasia) Initials: ms3 NIH Stroke Scale - NIH Stroke Score Date: 09/22/2024 Time: 14:20 Total Score = 0 10. Dysarthria (speech clarity - read or repeat words) - 0(Normal) 11. Extinction and Inattention (visual/tactile/auditory/spatial/personal) - 0(No abnormality) 1a. Level of Consciousness (LOC) - 0(Alert) 1b. Level of Consciousness (LOC) (Month \T\ Age) - 0(Both) 1c. LOC Commands (Open \T\ Closes Eyes/Room Maid) - 0(Both) 2. Best Gaze (Lateral Gaze Paresis) - 0(Normal) 3. Visual Field Loss - 0(No visual loss) 4. Facial Palsy - 0(Normal) 5a. Left Arm: Motor (10-second hold) - 0(No drift) 5b. Right Arm: Motor (10-second hold) - 0(No drift) 6a. Left Leg: Motor (5-second hold - always test supine) - 0(No drift) 6b. Right Leg: Motor (5-second hold - always test supine) - 0(No drift) 7. Limb Ataxia (finger/nose \T\ heel/castelan - test with eyes open) - 0(Absent) 8. Sensory Loss (pinprick arms/legs/face) - 0(Normal) 9. Best Language: Aphasia (description/naming/reading) - 0(No aphasia) Initials: ld1 Signatures: Dispatcher [employer] EDSusana Kim RN RN ap3 Kolby Torres RN RN ll1 Joselo Rider, DO ms3 Maria Elena Rider RN RN ld1 Delia Heard RN RN vc1 Dawn Gaitan ra3 Corrections: (The following items were deleted from the chart) 14:17 14:14 BP 163 / 92; Pulse 71bpm; Resp 17bpm; Pulse Ox 100%; ll1 ll1
--- NOTE | 2024-09-22 15:17 | EDPHYS ---
Physician Documentation [facility] Name: Nataly Nielson Age: 68 yrs Sex: Female : 1955 Arrival Date: 09/22/2024 Time: 14:02 Bed 3 Private MD: ED Physician Joselo Rider HPI: 09/22 14:19 This 68 yrs old Black Female presents to ER via Wheelchair with complaints of Dizziness ms3 - Facial tingling. 14:19 Nataly Nielson is a 68-year-old female who presents to the Emergency Department ms3 with symptoms of dizziness that were noted on waking up at 11:30-12PM today. Patient states she was feeling normal prior to going to sleep at 11 PM last night. She describes an episode where she almost fell while trying to take a step but managed to grab onto a car for support. She reports feeling as if she is spinning, along with shaking and tingling sensations on the right side of her body. She further describes a peculiar sensation on the right side of her face, which she characterizes as a gripping and releasing feeling.. Historical: - Allergies: 14:13 No Known Allergies; ll1 - Home Meds: 14:16 None [Active]; ll1 - PMHx: 14:13 None; ll1 - PSHx: 14:16 None; ll1 - Immunization history:: Adult Immunizations up to date. - Infectious Disease History:: Denies. - Social history:: Smoking status: Patient denies any tobacco usage or history of. ROS: 14:19 Constitutional: Negative for fever, and chills. Cardiovascular: Negative for chest ms3 pain, and palpitations. Respiratory: Negative for shortness of breath, cough, wheezing, and pleuritic chest pain, Abdomen/GI: Negative for abdominal pain, nausea, vomiting, diarrhea, and constipation, MS/Extremity: Negative for injury and deformity, Exam: 14:19 Constitutional: This is a well developed, well nourished patient who is awake, alert, ms3 and in no acute distress. Cardiovascular: Regular rate and rhythm with a normal S1 and S2. No gallops, murmurs, or rubs. Normal PMI, no JVD. No pulse deficits. Respiratory: Lungs have equal breath sounds bilaterally, clear to auscultation and percussion. No rales, rhonchi or wheezes noted. No increased work of breathing, no retractions or nasal flaring. Abdomen/GI: Soft, non-tender, with normal bowel sounds. No distension or tympany. No guarding or rebound. No evidence of tenderness throughout. Skin: Warm, dry with normal turgor. Normal color with no rashes, no lesions, and no evidence of cellulitis. 14:19 Neuro: Orientation: is normal, to person, place, time \T\ situation. Mentation: is normal, Memory: is normal, Cranial nerves: CN I not tested, CN II- XII are normal as tested, Cerebellar function: is grossly normal, normal finger to nose testing, Motor: is normal, Sensation: is normal, 14:41 ECG was reviewed by the Attending Physician. ms3 Vital Signs: 14:14 BP 163 / 92; Pulse 71; Resp 17; Temp 97.3; Pulse Ox 100% ; Weight 61.69 kg; Height 5 ll1 ft. 2 in. ; Pain 9/10; 14:40 BP 196 / 87; Pulse 59; Resp 14; Pulse Ox 100% on R/A; ld1 15:22 BP 162 / 67; Pulse 54; Pulse Ox 100% ; ap3 16:20 BP 162 / 83; Pulse 60; Resp 19; Pulse Ox 100% on R/A; ld1 16:50 BP 162 / 83; Pulse 53; Resp 18; Pulse Ox 100% on R/A; ld1 19:23 BP 140 / 78; Pulse 61; Resp 18; Pulse Ox 100% ; vc1 14:14 Body Mass Index 24.87 (61.69 kg, 157.48 cm) ll1 14:14 Pain Scale: Adult ll1 NIH Stroke Scale Scores: 14:19 NIHSS Score: 0 ms3 14:20 NIHSS Score: 0 ld1 MDM: 14:19 Medical Screening Exam initiated ms3 15:16 Differential diagnosis: cardiac arrhythmia, CVA, TIA, vertigo. Data reviewed: vital ms3 signs, nurses notes, lab test result(s), EKG, radiologic studies, and as a result, I will admit patient. Consideration of Admission/Observation Patient was admitted/placed on observation. Management of patient was discussed with the following: Hospitalist: Nomi Sung NP, on behalf of Dr Hicks. I considered the following discharge prescriptions or medication management in the emergency department Medications were administered in the Emergency Department. See MAR. Independent interpretation of the following test(s) in the Emergency Department EKG: See my EKG interpretation above. Counseling: I had a detailed discussion with the patient and/or guardian regarding the historical points, exam findings, and any diagnostic results supporting the discharge/admit diagnosis, lab results, radiology results, the need for further work-up and treatment in the hospital. ED course: . ED course: Patient states her dizziness has improved since arrival to the Emergency Department. She notes the right side of her face still feels tingly. 09/22 14:17 Order name: Basic Metabolic Panel; Complete Time: 15:08 ms3 09/22 14:17 Order name: CBC with Diff; Complete Time: 15:05 ms3 09/22 14:17 Order name: Hepatic Function; Complete Time: 15:08 ms3 09/22 14:17 Order name: High Sensitivity Troponin; Complete Time: 15:08 ms3 09/22 14:17 Order name: Magnesium; Complete Time: 15:08 ms3 09/22 14:17 Order name: Protime (+inr); Complete Time: 15:20 ms3 09/22 14:17 Order name: Ptt, Activated; Complete Time: 15:20 ms3 09/22 14:45 Order name: CREATININE WHOLE BLOOD; Complete Time: 15:05 EDMS 09/22 16:22 Order name: Glucose, Ancillary Testing; Complete Time: 17:46 EDMS 09/22 16:54 Order name: Basic Metabolic Panel EDMS 09/22 16:54 Order name: Basic Metabolic Panel EDMS 09/22 16:54 Order name: Basic Metabolic Panel EDMS 09/22 16:54 Order name: Basic Metabolic Panel EDMS 09/22 16:54 Order name: CBC with Automated Diff EDMS 09/22 16:54 Order name: CBC with Automated Diff EDMS 09/22 16:54 Order name: CBC with Automated Diff EDMS 09/22 16:54 Order name: CBC with Automated Diff EDMS 09/22 16:54 Order name: Lipid Profile EDMS 09/22 16:54 Order name: Lipid Profile EDMS 09/22 16:54 Order name: T4 Free EDMS 09/22 16:54 Order name: T4 Free EDMS 09/22 16:54 Order name: Thyroid Stimulating Hormone EDMS 09/22 16:54 Order name: Thyroid Stimulating Hormone EDNY 09/22 14:17 Order name: CT Head Angio; Complete Time: 15:05 ms3 09/22 14:17 Order name: CT Neck Angio; Complete Time: 15:05 ms3 09/22 14:17 Order name: CT Stroke Brain w/o Contrast; Complete Time: 15:05 ms3 09/22 14:17 Order name: Stroke CXR 1 View; Complete Time: 15:05 ms3 09/22 15:13 Order name: Echo w/ Doppler ms3 09/22 15:41 Order name: Brain Wo Cont; Complete Time: 17:46 EDNY 09/22 16:54 Order name: Physical Therapy Consult EDNY 09/22 14:17 Order name: Accucheck; Complete Time: 14:40 ms3 09/22 14:17 Order name: Cardiac monitoring; Complete Time: 14:40 ms3 09/22 14:17 Order name: EKG - Nurse/Tech; Complete Time: 14:40 ms3 09/22 14:17 Order name: IV Saline Lock; Complete Time: 14:40 ms3 09/22 14:17 Order name: Labs collected and sent; Complete Time: 14:40 ms3 09/22 14:17 Order name: NPO; Complete Time: 14:40 ms3 09/22 14:17 Order name: O2 Per Protocol; Complete Time: 14:40 ms3 09/22 14:17 Order name: O2 Sat Monitoring; Complete Time: 14:40 ms3 09/22 14:17 Order name: Stroke Swallow Screen; Complete Time: 14:40 ms3 09/22 14:52 Order name: Labs - recollect needed: recollect the blue top; Complete Time: 15:03 eb 09/22 15:39 Order name: Glucose Level; Complete Time: 16:16 ms3 09/22 15:39 Order name: PO challenge; Complete Time: 16:19 ms3 EC:41 Rate is 52 beats/min. Rhythm is regular. QRS [place] is Normal. [place] interval is normal. QRS ms3 interval is normal. Clinical impression: Sinus bradycardia. Interpreted by me. Reviewed by me. Administered Medications: 16:27 Not Given (Physician Discretion): [id number] mg IV at calculated rate once ld1 16:43 Drug: Meclizine PO 50 mg PO once Route: PO; ld1 Disposition Summary: 09/22/24 15:16 Hospitalization Ordered Notes: Hospitalization Status: Observation ms3 Provider: Alexi Hicks ms3 Condition: Stable ms3 Problem: new ms3 Symptoms: have improved ms3 Bed/Room Type: Standard ms3 Location: Telemetry/MedSurg (observation)(09/22/24 19:29) hw Room Assignment: 412(09/22/24 21:40) vc1 Diagnosis - Dizziness ms3 - Facial numbness ms3 Forms: - Medication Reconciliation Form ms3 - SBAR form ms3 - Leadership Thank You Letter ms3 NIH Stroke Scale - NIH Stroke Score Date: 09/22/2024 Time: 14:19 Total Score = 0 10. Dysarthria (speech clarity - read or repeat words) - 0(Normal) 11. Extinction and Inattention (visual/tactile/auditory/spatial/personal) - 0(No abnormality) 1a. Level of Consciousness (LOC) - 0(Alert) 1b. Level of Consciousness (LOC) (Month \T\ Age) - 0(Both) 1c. LOC Commands (Open \T\ Closes Eyes/Piano Mover) - 0(Both) 2. Best Gaze (Lateral Gaze Paresis) - 0(Normal) 3. Visual Field Loss - 0(No visual loss) 4. Facial Palsy - 0(Normal) 5a. Left Arm: Motor (10-second hold) - 0(No drift) 5b. Right Arm: Motor (10-second hold) - 0(No drift) 6a. Left Leg: Motor (5-second hold - always test supine) - 0(No drift) 6b. Right Leg: Motor (5-second hold - always test supine) - 0(No drift) 7. Limb Ataxia (finger/nose \T\ heel/castelan - test with eyes open) - 0(Absent) 8. Sensory Loss (pinprick arms/legs/face) - 0(Normal) 9. Best Language: Aphasia (description/naming/reading) - 0(No aphasia) Initials: ms3 NIH Stroke Scale - NIH Stroke Score Date: 09/22/2024 Time: 14:20 Total Score = 0 10. Dysarthria (speech clarity - read or repeat words) - 0(Normal) 11. Extinction and Inattention (visual/tactile/auditory/spatial/personal) - 0(No abnormality) 1a. Level of Consciousness (LOC) - 0(Alert) 1b. Level of Consciousness (LOC) (Month \T\ Age) - 0(Both) 1c. LOC Commands (Open \T\ Closes Eyes/Piano Mover) - 0(Both) 2. Best Gaze (Lateral Gaze Paresis) - 0(Normal) 3. Visual Field Loss - 0(No visual loss) 4. Facial Palsy - 0(Normal) 5a. Left Arm: Motor (10-second hold) - 0(No drift) 5b. Right Arm: Motor (10-second hold) - 0(No drift) 6a. Left Leg: Motor (5-second hold - always test supine) - 0(No drift) 6b. Right Leg: Motor (5-second hold - always test supine) - 0(No drift) 7. Limb Ataxia (finger/nose \T\ heel/castelan - test with eyes open) - 0(Absent) 8. Sensory Loss (pinprick arms/legs/face) - 0(Normal) 9. Best Language: Aphasia (description/naming/reading) - 0(No aphasia) Initials: ld1 Signatures: Dispatcher [employer] EDMS Nomi Sung, DREDGE LEVER OPERATOR-C DREDGE LEVER OPERATOR-Cla1 Mallorie Caballero Lynsay, RN RN ll1 Joselo Rider DO DO ms3 Maria Elena Rider, RN RN ld1 Delia Heard RN RN vc1 Valencia Thomson, RN RN kb3 Elizabeth Mitchell Corrections: (The following items were deleted from the chart) 14:18 14:18 BASIC METABOLIC PANEL+C.LAB.BRZ ordered. EDMS EDMS 14:18 14:18 CBC+H.LAB.BRZ ordered. EDMS EDMS 14:18 14:18 HEPATIC FUNCTION+C.LAB.BRZ ordered. EDMS EDMS 14:18 14:18 Troponin High Sensitivity+C.LAB.BRZ ordered. EDMS EDMS 14:18 14:18 MAGNESIUM+C.LAB.BRZ ordered. EDMS EDMS 14:18 14:18 PROTIME (+INR)+COAG.LAB.BRZ ordered. EDMS EDMS 14:18 14:18 PTT, ACTIVATED+COAG.LAB.BRZ ordered. EDMS EDMS 14:18 14:18 Head Angio+CT.RAD.BRZ ordered. EDMS EDMS 14:18 14:18 Neck Angio+CT.RAD.BRZ ordered. EDMS EDMS 14:18 14:18 CT-STROKE BRAIN W/O CONTRAST+CT.RAD.BRZ ordered. EDMS EDMS 14:18 14:18 Chest Single View+RAD.RAD.BRZ ordered. EDMS EDMS 14:19 14:19 MR STROKE PROTOCOL+MRI.RAD.BRZ ordered. EDMS EDMS 18:02 15:16 Telemetry/MedSurg (observation) ms3 kb3 18:02 15:16 ms3 kb3 19:29 18:02 [facility] ER HOLD kb3 hw 19:29 18:02 ERHOLD- kb3 hw 21:40 19:29 426 hw vc1
--- NOTE | 2024-09-22 15:57 | RAD REPORT ---
EXAMINATION: MRI BRAIN WITHOUT CONTRAST CLINICAL INDICATION: Female, 68 years old. Dizziness;a STROKE ALERT TECHNIQUE: Multiplanar multisequence MR images of the brain were obtained without intravenous contras t. Unless otherwise specified, incidental findings do not require dedicated imaging follow-up. [id number]. COMPARISON: Same-day head CT FINDINGS: INTRACRANIAL: No acute infarct identified. No significant mass effect or midline shift.No hydrocepha bela. Mild chronic small vessel ischemic changes.Mild cerebral atrophy. VASCULATURE: Normal signal voids in the larger intracranial arteries and dural venous sinuses. SINUSES: Scattered thickening within the paranasal sinuses.No mastoid effusions. BONE: The marrow signal pattern is within normal limits. IMPRESSION: No acute intracranial abnormality. Specifically, no evidence of acute infarct.
[2024-09-22] MEDS ORDERED: MECLIZINE HCL 12.5 MG TAB ONE (16:40)
[2024-09-22] MEDS ORDERED: ONDANSETRON 4 MG/2 ML VIAL IV PRN (16:51)
[2024-09-22] MEDS ORDERED: ACETAMINOPHEN 325 MG TABLET PO PRN (16:51)
--- NOTE | 2024-09-22 17:19 | P.HP ---
Certification for Inpatient Patient admitted to: Observation With expected LOS: <2 Midnights Patient will require the following post-hospital care: None Practitioner: I am a practitioner with admitting privileges, knowledge of patient current condition, hospital course, and medical plan of care. Services: Services provided to patient in accordance with Admission requirements found in Title 42 Section 412.3 of the Code of Federal Regulations Patient History Date of Service: 09/22/24 Reason for admission: Dizziness, hypertensive urgency History of Present Illness: 68-year-old female with no known past medical history presents to the emergency department with chief complaint of dizziness, right-sided facial paresthesias, abnormal gait since this morning when she woke up. Last known normal was around 11 PM last night when she went to bed. She was evaluated in the emergency department initially with a CT head which was negative for acute findings, she also had a CTA of her head which was negative for large vessel occlusion, CTA of the neck showed moderate left ICA stenosis. Subsequently an MRI of the brain was performed which was negative for acute findings specifically no signs of CVA. Patient still with complaints of headache, right facial pressure, dizziness/vertiginous symptoms and elevated blood pressure. ED provider wishes to admit under observation for further evaluation Allergies No Known Allergies Allergy (Unverified 12/31/17 20:19) - Past Medical/Surgical History -: None -: None Psychosocial/ Personal History: Lives at home with her family - Social History Alcohol use: No CD- Drugs: Yes Caffeine use: No Place of Residence: Home Review of Systems 10-point ROS is otherwise unremarkable Neurological: Other (Dizziness, headache, ear fullness) Physical Examination - Physical Exam General: Alert, In no apparent distress, Oriented x3 HEENT: Atraumatic, PERRLA, Mucous membr. moist/pink Neck: Supple, 2+ carotid pulse no bruit, No LAD Respiratory: Clear to auscultation bilaterally, Normal air movement Cardiovascular: Regular rate/rhythm, Normal S1 S2 Gastrointestinal: Normal bowel sounds, No tenderness Musculoskeletal: No tenderness Integumentary: No rashes Neurological: Normal gait, Normal speech, Normal strength at 5/5 x4 extr, Other (NIH score is 0) - Studies Laboratory Data (last 24 hrs) 09/22/24 09/22/24 09/22/24 15:03 14:25 14:25 WBC 8.00 Hgb 14.3 Hct 42.1 Plt Count 118 L PT 12.3 INR 1.17 APTT 31.6 Sodium 141 Potassium 3.8 BUN 10 Creatinine 0.80 Glucose 67 L Magnesium 2.2 Total Bilirubin 0.4 AST 13 L ALT 18 Alkaline Phosphatase 94 Assessment and Plan - Plan Assessment: Dizziness, hypertensive urgency Moderate left internal carotid artery stenosis Plan: Dizziness, hypertensive urgency CT head without contrast negative for acute findings CTA of the head negative for LVO CT of the neck shows moderate left carotid artery stenosis MRI brain negative for CVA Blood pressure markedly elevated during ER stay with systolics greater than 190 Blood sugar also in the 60s on lab, Accu-Chek showed 78-blood sugar possibly lower prehospital which may have contributed to symptoms Will monitor on telemetry, monitor blood pressures, repeat blood work including obtaining a TSH and lipid panel in the morning Patient may require initiation of blood pressure medication during hospitalization Moderate left internal carotid artery stenosis Further monitoring as an outpatient DVT PPX:Lovenox Code status:Full Discharge Plan: Home Plan to discharge in: 24 Hours - Advance Directives Does patient have a Living Will: No Does patient have a Durable POA for Healthcare: No - Code Status/Comfort Care Code Status Assessed: Yes (Full code) Critical Care: No Time Spent Managing Pts Care (In Minutes): 64
[2024-09-22 17:38] VITALS: BMI 23.4
[2024-09-22] MEDS: ATORVASTATIN 40 MG TAB PO SCH (21:00)
[2024-09-22 23:10] VITALS: O2SAT 100
[2024-09-23 06:40] LABS: Absolute Basophils 0.1 K/uL (0-0.5); Absolute Eosinophils 0.2 K/uL (0-0.5); Absolute Lymphocytes (CBC) 3.3 K/uL (0.7-4.9); Absolute Monocytes 0.8 K/uL (0.1-1.3); Absolute Neutrophil 3.4 K/uL (1.8-8.0); Basophils % 0.7 % (0-1.3); Eosinophils % 2.9 % (0-4.4); Hematocrit 39.7 % (36.0-45.0); Hemoglobin 13.2 g/dL (12.0-15.0); Lymphocytes % 42.8 % (15.3-44.8); MCH 31.2 pg (27.0-35.0); MCHC 33.2 g/dL (32.0-36.0); MCV 93.9 fL (80-100); MPV 12.1 fL (7.6-11.3); Neutrophils % 43.6 % (41.7-73.7); Nucleated Red Blood Cells % 0.1 % (0-0); Platelets 114 thou/uL (152-406); RBC Red Blood Cell Count 4.23 M/uL (3.86-4.86); Red Cell Distribution Width 14.2 % (12.1-15.2)
[2024-09-23 06:59] LABS: Anion Gap 6.4 mEq/L (5.0-15.0); Potassium 4.4 mEq/L (3.5-5.1); Thyroid Stimulating Hormone 1.69 uIU/mL (0.358-3.740)
[2024-09-23] MEDS: FOLIC ACID 1 MG TABLET PO SCH (08:45)
[2024-09-23] MEDS: AMLODIPINE 5 MG TAB PO SCH (08:45)
[2024-09-23] MEDS: ASPIRIN EC 81 MG TAB PO SCH (08:46)
[2024-09-23] MEDS: ENOXAPARIN 40 MG/0.4 ML SQ SCH (08:46)
[2024-09-23 08:47] LABS: Blood Morphology Comment NOT SEEN (NOT SEEN); Platelet Estimate ADEQ; Platelets Clumped FEW; White Blood Cell Scan OK (OK)
[2024-09-23 12:06] VITALS: BP 179/83; TEMP 97.7
--- NOTE | 2024-09-23 15:26 | P.DS ---
Admission Date: 09/22/24 Discharge Date: 09/23/24 Disposition: ROUTINE DISCHARGE Discharge Condition: GOOD Reason for Admission: Dizziness, hypertensive urgency Brief History of Present Illness: 68-year-old female with no known past medical history presents to the emergency department with chief complaint of dizziness, right-sided facial paresthesias, abnormal gait since this morning when she woke up. Last known normal was around 11 PM last night when she went to bed. She was evaluated in the emergency department initially with a CT head which was negative for acute findings, she also had a CTA of her head which was negative for large vessel occlusion, CTA of the neck showed moderate left ICA stenosis. Subsequently an MRI of the brain was performed which was negative for acute findings specifically no signs of CVA. Patient still with complaints of headache, right facial pressure, dizziness/vertiginous symptoms and elevated blood pressure. ED provider wishes to admit under observation for further evaluation Hospital Course: Assessment: Dizziness, hypertensive urgency Moderate left internal carotid artery stenosis Patient was admitted to the hospital for dizziness/lightheadedness, headache with concern for CVA. She had an MRI of her brain which did not show any signs of stroke. CTA of the head and neck did show moderate left internal carotid artery stenosis which she should follow-up for monitoring outpatient. She has done well, walked without assistance 250 feet with PT and is feeling better today. Her blood pressure was markedly elevated in the 190s systolic on admission, is improved to the 160s to 170s with amlodipine. She will be sent a prescription for amlodipine to her pharmacy and should continue to monitor her blood pressure daily as discussed as well as arranging for close follow-up with a local primary care doctor for further titration of her new blood pressure medication. Vital Signs/Physical Exam: Temp Pulse Resp BP Pulse Ox 97.7 F 53 20 179/83 H 91 09/23/24 12:00 09/23/24 12:00 09/23/24 12:00 09/23/24 12:09/23/24 12:00 General: Alert, In no apparent distress, Oriented x3 HEENT: Atraumatic, PERRLA Neck: Supple, JVD not distended Respiratory: Clear to auscultation bilaterally, Normal air movement Cardiovascular: Regular rate/rhythm, Normal S1 S2 Gastrointestinal: Normal bowel sounds, No tenderness Musculoskeletal: No tenderness Integumentary: No rashes Neurological: Normal speech, Normal affect Laboratory Data at Discharge: WBC 7.80 thou/uL (4.3-10.9) 09/23/24 06:00 Hgb 13.2 g/dL (12.0-15.0) 09/23/24 06:00 Hct 39.7 % (36.0-45.0) 09/23/24 06:00 Plt Count 114 thou/uL (152-406) L 09/23/24 06:00 PT 12.3 SECONDS (9.4-12.5) 09/22/24 15:03 INR 1.17 09/22/24 15:03 APTT 31.6 SECONDS (24.3-36.9) 09/22/24 15:03 Sodium 141 mEq/L (136-145) 09/23/24 06:00 Potassium 4.4 mEq/L (3.5-5.1) D 09/23/24 06:00 BUN 8 mg/dL (7-18) 09/23/24 06:00 Creatinine 0.69 mg/dL (0.55-1.02) 09/23/24 06:00 Glucose 92 mg/dL (74-106) 09/23/24 06:00 Magnesium 2.2 mg/dL (1.6-2.4) 09/22/24 14:25 Total Bilirubin 0.4 mg/dL (0.2-1.0) 09/22/24 14:25 AST 13 U/L (15-37) L 09/22/24 14:25 ALT 18 U/L (13-56) 09/22/24 14:25 Alkaline Phosphatase 94 U/L (45-117) 09/22/24 14:25 Triglycerides 103 mg/dL (<150) 09/23/24 06:00 Cholesterol 153 mg/dL (<200) 09/23/24 06:00 HDL Cholesterol 44 mg/dL (40-60) 09/23/24 06:00 Cholesterol/HDL Ratio 3.48 09/23/24 06:00 Home Medications: Amlodipine [Norvasc*] 5 mg PO DAILY #60 tab 09/23/24 Benzonatate [Tessalon Perle] 100 mg PO TID PRN #30 cap 09/23/24 New Medications: Amlodipine [Norvasc*] 5 mg PO DAILY #60 tab Benzonatate [Tessalon Perle] 100 mg PO TID PRN #30 cap PRN Reason: Cough Physician Discharge Instructions: Patient was admitted to the hospital for dizziness/lightheadedness, headache with concern for CVA. She had an MRI of her brain which did not show any signs of stroke. CTA of the head and neck did show moderate left internal carotid artery stenosis which she should follow-up for monitoring outpatient. She has done well, walked without assistance 250 feet with PT and is feeling better today. Her blood pressure was markedly elevated in the 190s systolic on admission, is improved to the 160s to 170s with amlodipine. She will be sent a prescription for amlodipine to her pharmacy and should continue to monitor her blood pressure daily as discussed as well as arranging for close follow-up with a local primary care doctor for further titration of her new blood pressure medication. Diet: Regular Activity: Ad cinthya Followup: NONE,NONE [Primary Care Provider] - 1 Week Time spent managing pt's care (in minutes): 45
== END 2024-09-23 14:10 | disposition home or self-care (01) ==
LOC: ER 14:02 → ERHOLD 16:49 → 4TH 22:53
PROVIDERS: ADMIT Hospitalist; ATTEND Hospitalist
DX: I16.0 Hypertensive urgency (principal); I65.22 Occlusion and stenosis of left carotid artery; R42 Dizziness and giddiness; R20.2 Paresthesia of skin; R26.9 Unspecified abnormalities of gait and mobility; R51.9 Headache, unspecified
CPT/HCPCS: 36415; 70450; 70496; 70498; 70551; 71045; 80048; 80061; 80076; 82565; 82947; 83735; 84439; 84443; 84484; 85025; 85610; 85730; 93005; 97112; 97116; 97161; 99285; G0378; J1650; J8597; Q9967